=== PATIENT | male | born 2000 | race Caucasian/White ===

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

== ENCOUNTER 2019-01-12 00:12 | Emergency (ER) | payer MEDICAID, OTHER ==
[~2019-01-12] VITALS: Ht 177.8 cm; Wt 65.9 kg
[2019-01-12 00:23] VITALS: BP 105/64
== END 2019-01-12 01:30 | disposition home or self-care (01) ==
LOC: EDBD 00:12 → M ED 00:12
DX: T49.6X1A Poisoning by otorhinolaryngological drugs and preparations, accidental (unintentional), initial encounter (principal); F41.9 Anxiety disorder, unspecified; X58.XXXA Exposure to other specified factors, initial encounter; Y92.098 Other place in other non-institutional residence as the place of occurrence of the external cause

== ENCOUNTER 2019-03-14 03:21 | Emergency (ER) | payer OTHER ==
[~2019-03-14] VITALS: Ht 177.8 cm; Wt 63.6 kg
[2019-03-14 04:59] LABS: ABG BASE EXCESS 1.6 (-2.0-2.0); ABG O2 SATURATION 98.2 % (95.0-99.0); ABG PARTIAL PRESSURE CO2 40.5 mmHg (35.0-45.0); ABG PARTIAL PRESSURE O2 109.2 mmHg (75.0-100.0); ABG STANDARD HCO3 25.9 MEQ/L (22.0-26.0); ABG TOTAL CO2 27.3 MEQ/L (22.0-29.0); ABG pH (ARTERIAL) 7.426 UNITS (7.350-7.450)
[2019-03-14 05:21] VITALS: BP 119/64
[2019-03-14] MEDS: ACETAMINOPHEN 325 MG TAB PO ONE (05:23)
--- NOTE | 2019-03-14 06:29 | ECGEPIP ---
Stationary ECG Study [facility] - ED Test Date: 2019-03-14 Pat Name: BREANN KAYE Department: Room: - Gender: M [employer] Consultant: [facility] : 2000 Requested By: BRYCE PEREZ Order Number: [id number] Reading MD: Nathan Montano Measurements Intervals [place] Rate: 61 P: 62 ID: [id number] QRS: 74 QRSD: 104 T: 56 QT: 367 QTc: 373 Interpretive Statements SINUS RHYTHM WITH SINUS ARRHYTHMIA NSTTW ABNORMALITIES NO PRIORS FOR COMPARISON Electronically Signed On 03-14-2019 6:29:33 EDT by Nathan Montano
--- NOTE | 2019-03-14 07:58 | REP ---
See in portable chest x-ray: Single view. History: Chest pain. Findings: The lungs are well inflated and clear. The pleural angles are sharp. Heart size is normal. No bony abnormality is seen. Pulmonary vasculature is not increased. Impression: Negative portable chest x-ray. Electronically Signed by Gerry Plaza MD 03/14/2019 07:50 A
== END 2019-03-14 05:39 | disposition home or self-care (01) ==
LOC: M ED 03:21
DX: R07.89 Other chest pain (principal); F91.9 Conduct disorder, unspecified

== ENCOUNTER → 2019-04-09 | Outpatient (REF) | payer OTHER ==
[~2019-04-09] MED LIST changes: +ALL10TAB28; +MOBI4TAB PO; +OMEP10CASR PO; +ROBA100S; +SM E1DRO2
== END ==
LOC: M LAB REF 19:30
PROVIDERS: ATTEND Physician Assistant
DX: M54.5 Low back pain (principal)

== ENCOUNTER → 2019-04-10 | Outpatient (CLI) | payer OTHER ==
--- NOTE | 2019-04-10 15:16 | REP ---
HISTORY: Low back pain after lifting heavy boxes. COMPARISON: None. There is a mild levoconvex curve. Vertebral body height is within normal limits. The disc spaces are symmetric and well maintained. There is no spondylolysis or spondylolisthesis. The pedicles are intact bilaterally. IMPRESSION: Levoconvex curve secondary to positioning, spasm, or developmental. Correlate clinically. Electronically Signed by Omer Gore DO 04/10/2019 03:22 P
== END ==
LOC: M ADAMS 11:47
PROVIDERS: ATTEND Physician Assistant
DX: M54.5 Low back pain (principal)

== ENCOUNTER 2019-04-29 23:57 | Emergency (ER) | payer OTHER ==
[~2019-04-29] VITALS: Ht 175.3 cm; Wt 63.8 kg
[~2019-04-29 23:57] MED LIST changes: -ALL10TAB28; -MOBI4TAB PO; -OMEP10CASR PO; -ROBA100S; -SM E1DRO2
[2019-04-30] MEDS ORDERED: ALL10TAB28 (00:18)
[2019-04-30] MEDS ORDERED: SM E1DRO2 (00:18)
[2019-04-30] MEDS ORDERED: ROBA100S (00:18)
[2019-04-30] MEDS ORDERED: OMEP10CASR PO (01:10)
[2019-04-30] MEDS ORDERED: MOBI4TAB PO (01:10)
[2019-04-30 01:20] VITALS: BP 106/66
--- NOTE | 2019-04-30 09:43 | REP ---
LEFT RIB SERIES: Four views of the left ribs performed. No fracture or bone lesion is seen. An accompanying view of the chest demonstrates no acute infiltrate. The heart and mediastinum are within normal limits. IMPRESSION: Negative left rib series. Electronically Signed by Rick Haider MD 04/30/2019 04:28 P
== END 2019-04-30 01:35 | disposition home or self-care (01) ==
LOC: M ED 23:57
DX: M94.0 Chondrocostal junction syndrome [Tietze] (principal); K21.9 Gastro-esophageal reflux disease without esophagitis; J45.909 Unspecified asthma, uncomplicated; Z77.098 Contact with and (suspected) exposure to other hazardous, chiefly nonmedicinal, chemicals; Z87.891 Personal history of nicotine dependence; F12.10 Cannabis abuse, uncomplicated; Z79.899 Other long term (current) drug therapy

== ENCOUNTER 2019-11-13 19:43 | Emergency (ER) | payer OTHER ==
[~2019-11-13] VITALS: Ht 170.2 cm; Wt 62.0 kg
[2019-11-13 19:43] VITALS: BP 132/78
[~2019-11-13 19:43] MED LIST changes: +ALL10TAB29; +MOBI4TAB PO; +OMEP10CASR PO; +ROBA100S; +SM E1DRO2
== END 2019-11-13 20:35 | disposition home or self-care (01) ==
LOC: M ED 19:43
DX: Z76.0 Encounter for issue of repeat prescription (principal); F33.9 Major depressive disorder, recurrent, unspecified; F41.9 Anxiety disorder, unspecified; F17.210 Nicotine dependence, cigarettes, uncomplicated

== ENCOUNTER 2021-02-01 01:49 | Emergency (ER) | payer OTHER ==
[~2021-02-01] VITALS: Ht 167.6 cm; Wt 68.2 kg
[~2021-02-01 01:49] MED LIST changes: -ALL10TAB29; +CETI-24
[2021-02-01] MEDS ORDERED: KETOROLAC 30 MG/ML 1ML VIAL IM ONE (02:50)
[2021-02-01] MEDS ORDERED: IBUP-1114 PO (03:31)
--- NOTE | 2021-02-01 03:43 | REPVR ---
PROCEDURE INFORMATION: Exam: XR Right Foot Exam date and time: 02/01/2021 3:12 AM Age: 20 years old Clinical indication: Pain; Foot and heel; Bilateral; Additional info: Bilateral heel pain TECHNIQUE: Imaging protocol: XR Right foot. Views: 3 or more views. COMPARISON: No relevant prior studies available. FINDINGS: Bones/joints: Normal. No inferior calcaneal spurring. Soft tissues: Normal. IMPRESSION: Negative right foot. PROCEDURE INFORMATION: Exam: XR Left Foot Exam date and time: 02/01/2021 3:12 AM Age: 20 years old Clinical indication: Pain; Foot and heel; Bilateral; Additional info: Bilateral heel pain TECHNIQUE: Imaging protocol: XR Left foot. Views: 3 or more views. COMPARISON: No relevant prior studies available. FINDINGS: Bones/joints: Normal. No inferior calcaneal spurring. Soft tissues: Normal. IMPRESSION: Negative left foot. Electronically signed by: Sabino Thorpe On 02/01/2021 03:43:13 AM
[2021-02-01 04:00] VITALS: BP 99/50
== END 2021-02-01 04:19 | disposition home or self-care (01) ==
LOC: M ED 01:49
DX: S90.31XA Contusion of right foot, initial encounter (principal); S90.32XA Contusion of left foot, initial encounter; W22.8XXA Striking against or struck by other objects, initial encounter; Y92.018 Other place in single-family (private) house as the place of occurrence of the external cause
CPT/HCPCS: 73630; 96372; 99284; J1885

== ENCOUNTER 2022-04-05 05:01 | Emergency (ER) | payer MEDICAID, OTHER ==
[~2022-04-05] VITALS: Ht 172.7 cm; Wt 65.9 kg
[~2022-04-05 05:01] MED LIST changes: +EYE0.0255; +IBUP-1114 PO; -SM E1DRO2
[2022-04-05 06:00] LABS: HEMATOCRIT 41.5 % (42.0-52.0); MEAN CORPUSCULAR HEMOGLOBIN 33.2 pg (27.0-33.0); MEAN CORPUSCULAR HGB CONC 36.1 g/dl (32.0-36.5); MEAN CORPUSCULAR VOLUME 91.8 fl (80.0-96.0); PLATELET COUNT, AUTOMATED 283 10^3/uL (150-450); RED BLOOD COUNT 4.52 10^6/uL (4.30-6.10); WHITE BLOOD COUNT 10.7 10^3/uL (4.0-10.0)
[2022-04-05] MEDS ORDERED: ALLE180T33 PO (06:24)
[2022-04-05] MEDS ORDERED: HOME MED LIST COMPLETE! XX SCH (06:25)
[2022-04-05 06:26] LABS: AMPHETAMINES LEVEL URINE NEGATIVE (NEGATIVE); BARBITURATES URINE NEGATIVE (NEGATIVE); BENZODIAZEPINES URINE NEGATIVE (NEGATIVE); CANNABINOIDS URINE POSITIVE (NEGATIVE); COCAINE METABOLITE URINE NEGATIVE (NEGATIVE); METHADONE URINE NEGATIVE (NEGATIVE); OPIATES URINE NEGATIVE (NEGATIVE); PHENCYCLIDINE URINE NEGATIVE (NEGATIVE)
[2022-04-05 06:34] LABS: ACETAMINOPHEN LEVEL < 2.0 UG/ML (10.0-30.0); ALBUMIN 4.3 GM/DL (3.2-5.2); ALT/SGPT 19 U/L (12-78); BILIRUBIN,DIRECT 0.2 MG/DL (0.0-0.2); BILIRUBIN,TOTAL 1.1 MG/DL (0.2-1.0); BLOOD UREA NITROGEN 19 MG/DL (7-18); CALCIUM LEVEL 9.6 MG/DL (8.5-10.1); CARBON DIOXIDE LEVEL 26 MEQ/L (21-32); CHLORIDE LEVEL 107 MEQ/L (98-107); ETHYL ALCOHOL (ETHANOL) < 0.003 % (0.000-0.010); GLOMERULAR FILTRATION RATE > 60.0 (>60); GLUCOSE, FASTING 99 MG/DL (70-100); POTASSIUM SERUM 3.9 MEQ/L (3.5-5.1); SALICYLATE LEVEL < 1.7 MG/DL (5.0-30.0); SODIUM LEVEL 140 MEQ/L (136-145); TOTAL PROTEIN 7.6 GM/DL (6.4-8.2)
[2022-04-05 07:01] LABS: RSV AMPLIFICATION NEGATIVE (NEGATIVE)
[2022-04-05 15:14] VITALS: BP 106/67
== END 2022-04-05 15:16 | disposition home or self-care (01) ==
LOC: M ED 05:01
DX: F32.A Depression, unspecified (principal); R45.851 Suicidal ideations; F17.200 Nicotine dependence, unspecified, uncomplicated; F10.10 Alcohol abuse, uncomplicated; F12.10 Cannabis abuse, uncomplicated

== ENCOUNTER 2022-07-17 05:32 | Emergency (ER) | payer OTHER ==
[~2022-07-17] VITALS: Ht 172.7 cm; Wt 65.9 kg
[~2022-07-17 05:32] MED LIST changes: +ALLE180T33 PO
[2022-07-17 06:29] LABS: BASO % 0.5 % (0.0-1.0); EOS # 0.1 10^3/uL (0.0-0.5); EOS % 1.1 % (0.0-3.0); HEMATOCRIT 42.1 % (42.0-52.0); HEMOGLOBIN 14.5 g/dl (13.5-17.5); LYMPH # 2.4 10^3/uL (1.5-5.0); LYMPH % 37.6 % (24.0-44.0); MEAN CORPUSCULAR HEMOGLOBIN 33.6 pg (27.0-33.0); MEAN CORPUSCULAR HGB CONC 34.4 g/dl (32.0-36.5); MEAN CORPUSCULAR VOLUME 97.7 fl (80.0-96.0); MONO # 0.4 10^3/uL (0.0-0.8); MONO % 6.7 % (2.0-8.0); NEUTROPHILS # 3.5 10^3/uL (1.5-8.5); NEUTROPHILS % 53.6 % (36.0-66.0); PLATELET COUNT, AUTOMATED 216 10^3/uL (150-450); RED BLOOD COUNT 4.31 10^6/uL (4.30-6.10); WHITE BLOOD COUNT 6.5 10^3/uL (4.0-10.0)
[2022-07-17] MEDS ORDERED: NS 1,000 ML IV ONE (06:55)
[2022-07-17 07:12] LABS: ALT/SGPT 22 U/L (12-78); BILIRUBIN,TOTAL 1.1 MG/DL (0.2-1.0); BLOOD UREA NITROGEN 13 MG/DL (7-18); CALCIUM LEVEL 9.1 MG/DL (8.5-10.1); CARBON DIOXIDE LEVEL 26 MEQ/L (21-32); CHLORIDE LEVEL 110 MEQ/L (98-107); GLOMERULAR FILTRATION RATE > 60.0 (>60); GLUCOSE, FASTING 89 MG/DL (70-100); POTASSIUM SERUM 3.9 MEQ/L (3.5-5.1); SODIUM LEVEL 139 MEQ/L (136-145)
[2022-07-17 07:34] LABS: APPEARANCE, URINE MANUAL CLEAR (CLEAR); BILIRUBIN, URINE MANUAL NEGATIVE (NEGATIVE); BLOOD URINE MANUAL NEGATIVE (NEGATIVE); COLOR, URINE MANUAL YELLOW (YELLOW); GLUCOSE, URINE (UA) MANUAL NEGATIVE (NEGATIVE); KETONE, URINE MANUAL NEGATIVE (NEGATIVE); LEUKOCYTE ESTERASE, URINE MAN NEGATIVE (NEGATIVE); NITRITE, URINE MANUAL NEGATIVE (NEGATIVE); PROTEIN, URINE MANUAL NEGATIVE (NEGATIVE); UROBILINOGEN, URINE MANUAL NORMAL (NORMAL)
[2022-07-17 07:56] LABS: AMPHETAMINES LEVEL URINE NEGATIVE (NEGATIVE); BARBITURATES URINE NEGATIVE (NEGATIVE); BENZODIAZEPINES URINE NEGATIVE (NEGATIVE); CANNABINOIDS URINE POSITIVE (NEGATIVE); COCAINE METABOLITE URINE NEGATIVE (NEGATIVE); METHADONE URINE NEGATIVE (NEGATIVE); OPIATES URINE NEGATIVE (NEGATIVE); PHENCYCLIDINE URINE NEGATIVE (NEGATIVE)
[2022-07-17] MEDS ORDERED: ONDA4TAB6 PO (09:29)
[2022-07-17 09:46] VITALS: BP 104/63
== END 2022-07-17 10:00 | disposition home or self-care (01) ==
LOC: M ED 05:32
DX: R42 Dizziness and giddiness (principal); R51.9 Headache, unspecified; H53.9 Unspecified visual disturbance; R00.1 Bradycardia, unspecified; F17.200 Nicotine dependence, unspecified, uncomplicated; Z79.899 Other long term (current) drug therapy

== ENCOUNTER 2022-10-22 12:51 | Emergency (ER) | payer OTHER ==
[~2022-10-22] VITALS: Ht 172.7 cm; Wt 61.8 kg
[~2022-10-22 12:51] MED LIST changes: +ONDA4TAB6 PO
[2022-10-22] MEDS ORDERED: MELA10TA PO (13:09)
[2022-10-22] MEDS ORDERED: SUCRALFATE 1 GM TAB PO ONE (14:15)
[2022-10-22 14:40] LABS: BASO % 0.3 % (0.0-1.0); EOS # 0.1 10^3/uL (0.0-0.5); EOS % 0.6 % (0.0-3.0); HEMATOCRIT 45.2 % (42.0-52.0); HEMOGLOBIN 15.7 g/dl (13.5-17.5); LYMPH # 2.4 10^3/uL (1.5-5.0); LYMPH % 22.7 % (24.0-44.0); MEAN CORPUSCULAR HEMOGLOBIN 33.1 pg (27.0-33.0); MEAN CORPUSCULAR HGB CONC 34.7 g/dl (32.0-36.5); MEAN CORPUSCULAR VOLUME 95.4 fl (80.0-96.0); MONO # 0.6 10^3/uL (0.0-0.8); MONO % 5.3 % (2.0-8.0); NEUTROPHILS # 7.4 10^3/uL (1.5-8.5); NEUTROPHILS % 70.6 % (36.0-66.0); PLATELET COUNT, AUTOMATED 270 10^3/uL (150-450); RED BLOOD COUNT 4.74 10^6/uL (4.30-6.10); WHITE BLOOD COUNT 10.5 10^3/uL (4.0-10.0)
[2022-10-22 14:52] LABS: INR 0.99; PROTHROMBIN TIME 13.3 SECONDS (12.5-14.5)
[2022-10-22 15:25] LABS: ALBUMIN 4.5 G/DL (3.2-5.2); BILIRUBIN,DIRECT 0.3 MG/DL (<0.4); TOTAL PROTEIN 7.4 G/DL (5.7-8.2)
[2022-10-22] MEDS ORDERED: PEPC1TAB5 PO (15:47)
[2022-10-22 15:56] VITALS: BP 122/69
== END 2022-10-22 16:01 | disposition home or self-care (01) ==
LOC: M ED 12:51
DX: K29.70 Gastritis, unspecified, without bleeding (principal); R10.9 Unspecified abdominal pain; F17.200 Nicotine dependence, unspecified, uncomplicated; K59.00 Constipation, unspecified; J30.2 Other seasonal allergic rhinitis; M41.86 Other forms of scoliosis, lumbar region

== ENCOUNTER 2025-08-25 01:36 | Emergency (ER) | payer OTHER ==
[~2025-08-25] VITALS: Ht 172.7 cm; Wt 63.6 kg
[~2025-08-25 01:36] MED LIST changes: +MELATONIN CR10 MG PO; +ONDA-282 PO; -ONDA4TAB6 PO; +PEPC1TAB5 PO
[2025-08-25 01:43] VITALS: BP 119/78; TEMP 97.6; O2SAT 100
[2025-08-25 02:12] LABS: BASO # 0.0 10^3/uL (0.0-0.2); BASO % 0.4 % (0.0-1.0); EOS # 0.2 10^3/uL (0.0-0.5); EOS % 2.0 % (0.0-3.0); LYMPH # 3.2 10^3/uL (1.5-5.0); LYMPH % 35.5 % (24.0-44.0); MONO # 0.8 10^3/uL (0.0-0.8); MONO % 8.3 % (2.0-8.0); NEUTROPHILS # 4.9 10^3/uL (1.5-8.5); NEUTROPHILS % 53.6 % (36.0-66.0); PLATELET COUNT, AUTOMATED 228 10^3/uL (150-450)
[2025-08-25 02:49] LABS: CALCIUM LEVEL 8.7 MG/DL (8.5-10.1); CARBON DIOXIDE LEVEL 25 MMOL/L (20-31); CHLORIDE LEVEL 109 MMOL/L (98-107); CK-MB VALUE MASS < 1.0 NG/ML (<3.6); CPK CREATINE PHOSPHOKINASE 100 U/L (46-171); CREATININE FOR GFR 0.93 MG/DL (0.70-1.30); GLOMERULAR FILTRATION RATE > 90.0 (>60); POTASSIUM SERUM 4.3 MMOL/L (3.5-5.1); SODIUM LEVEL 140 MMOL/L (136-145)
== END 2025-08-25 03:02 | disposition left against medical advice (07) ==
LOC: M ED 01:36
DX: Z53.21 Procedure and treatment not carried out due to patient leaving prior to being seen by health care provider (principal)

== ENCOUNTER 2025-09-11 12:19 | Emergency (ER) | payer OTHER ==
[~2025-09-11] VITALS: Ht 172.7 cm; Wt 65.9 kg
[2025-09-11 12:54] LABS: PLATELET COUNT, AUTOMATED 245 10^3/uL (150-450)
[2025-09-11 13:27] LABS: AMPHETAMINES LEVEL URINE NEGATIVE (NEGATIVE); BARBITURATES URINE NEGATIVE (NEGATIVE); BENZODIAZEPINES URINE NEGATIVE (NEGATIVE); COCAINE METABOLITE URINE NEGATIVE (NEGATIVE); METHADONE URINE NEGATIVE (NEGATIVE); OPIATES URINE NEGATIVE (NEGATIVE); PHENCYCLIDINE URINE NEGATIVE (NEGATIVE)
[2025-09-11 13:30] LABS: ETHYL ALCOHOL (ETHANOL) < 0.003 % (0.000-0.010)
[2025-09-11 13:31] LABS: SALICYLATE LEVEL < 3.0 MG/DL (<30)
[2025-09-11 13:33] LABS: ALT/SGPT 16 U/L (7.0-40); AST/SGOT 18 U/L (<34); CALCIUM LEVEL 9.2 MG/DL (8.5-10.1); CARBON DIOXIDE LEVEL 28 MMOL/L (20-31); CHLORIDE LEVEL 108 MMOL/L (98-107); CREATININE FOR GFR 0.86 MG/DL (0.70-1.30); GLOMERULAR FILTRATION RATE > 90.0 (>60); POTASSIUM SERUM 3.9 MMOL/L (3.5-5.1); SODIUM LEVEL 143 MMOL/L (136-145)
[2025-09-11 13:36] LABS: CANNABINOIDS URINE POSITIVE (NEGATIVE)
[2025-09-11 15:29] VITALS: BP 115/72; TEMP 99; O2SAT 98
== END 2025-09-11 15:31 | disposition home or self-care (01) ==
LOC: M ED 12:19
DX: F43.0 Acute stress reaction (principal); F41.9 Anxiety disorder, unspecified; F17.200 Nicotine dependence, unspecified, uncomplicated; F12.10 Cannabis abuse, uncomplicated; F10.10 Alcohol abuse, uncomplicated; Z91.048 Other nonmedicinal substance allergy status